=== PATIENT | male | born 1980 | race Two or more races ===

== ENCOUNTER 2017-04-09 09:37 | Emergency (ER) | payer OTHER, SELFPAY ==
[~2017-04-09] VITALS: Ht 182.9 cm; Wt 86.5 kg
[2017-04-09 11:57] LABS: HEMATOCRIT 45.8 % (39.2-51.8); HEMOGLOBIN 15.9 g/dL (13.7-18.0); WHITE BLOOD COUNT 7.3 x10^3/uL (3.4-10)
[2017-04-09 12:04] LABS: BLOOD UREA NITROGEN 11 mg/dL (7-18)
[2017-04-09 12:08] LABS: ASPARTATE AMINO TRANSFERASE 16 U/L (15-37)
[2017-04-09 13:01] VITALS: BP 116/64
== END 2017-04-09 13:03 | disposition home or self-care (01) ==
LOC: ED 12:22
DX: R04.0 Epistaxis (principal); R11.2 Nausea with vomiting, unspecified
CPT/HCPCS: 36415; 80053; 85025; 99284